=== PATIENT | female | born 1980 | race Caucasian/White ===

== ENCOUNTER 2019-07-23 20:19 | Emergency (ER) | payer OTHER ==
[2019-07-23] MEDS: ACETAMINOPHEN 325 MG TAB PO (22:23)
== END 2019-07-23 23:12 | disposition home or self-care (01) ==
LOC: FTE 23:12
DX: O99.89 Other specified diseases and conditions complicating pregnancy, childbirth and the puerperium (principal); M54.12 Radiculopathy, cervical region; Z3A.01 Less than 8 weeks gestation of pregnancy
CPT/HCPCS: 99282; Z7502